=== PATIENT | female | born 1935 ===

== ENCOUNTER 2017-10-23 16:43 | Inpatient (IN) | payer MEDICARE, MEDICAID ==
[2017-10-23 16:43] VITALS: BMI 30.2
[2017-10-23] MEDS ORDERED: Metoprolol 1 mg/ml Inj IVP STA (17:27)
[2017-10-23 17:42] LABS: BASO # 0.01 K/mm3 (0.0-2.0); BASO % 0.2 % (0.0-3.0); EOS # 0.1 (0.0-0.7); EOS % 1.6 % (1.5-5.0); GRAN # 3.64 (1.4-6.5); GRAN % 57.8 % (50.0-68.0); HEMOGLOBIN 14.8 g/dL (12.0-16.0); LYMPH # 2.2 (1.2-3.4); LYMPH % 35.5 % (22.0-35.0); MEAN CELL VOLUME 88.8 fl (80.0-105.0); MEAN CORPUSCULAR HEMOGLOBIN 30.1 pg (25.0-35.0); MEAN CORPUSCULAR HGB CONC 33.9 g/dl (31.0-37.0); MEAN PLATELET VOLUME 10.6 fl (7.0-11.0); MONO # 0.3 (0.1-0.6); MONO % 4.9 % (1.0-6.0); RBC 4.91 10^6/uL (3.5-6.1); RED CELL DISTRIBUTION WIDTH 13.7 % (11.5-14.5); WHITE BLOOD COUNT 6.3 10^3/ul (4.5-11.0)
[2017-10-23 18:02] LABS: ALB/GLOB RATIO 1.3 (1.1-1.8); ALBUMIN 4.5 g/dL (3.0-4.8); ALT/SGPT 29 U/L (7-56); AST/SGOT 33 U/L (14-36); BLOOD UREA NITROGEN 21 mg/dL (7-21); CALCIUM 9.9 mg/dL (8.4-10.5); GFR AFRICAN-AMERICAN > 60; GFR NON-AFRICAN AMERICAN > 60; MAGNESIUM 1.9 mg/dL (1.7-2.2)
[2017-10-23 18:14] LABS: TROPONIN I < 0.01 ng/mL
[2017-10-23 18:15] LABS: URINE BILIRUBIN NEGATIVE (NEGATIVE); URINE BLOOD NEGATIVE (NEGATIVE); URINE GLUCOSE (UA) NEGATIVE (NEGATIVE); URINE LEUKOCYTE ESTERASE NEGATIVE Leu/uL (NEGATIVE); URINE NITRATE NEGATIVE (NEGATIVE); URINE PROTEIN NEGATIVE mg/dL (<30 mg/dL); URINE UROBILINOGEN 0.2 E.U./dL (<1 E.U./dL)
[2017-10-23 18:20] LABS: URINE APPEARANCE CLEAR (CLEAR); URINE COLOR YELLOW (YELLOW)
[2017-10-23 18:20] LABS: FREE T4 0.99 ng/dL (0.78-2.19)
[2017-10-23 18:33] LABS: T3 1.21 ng/mL (0.97-1.69)
[2017-10-23] MEDS ORDERED: Nitroglycerin 2% Ointment Foilpak UD TOP PRN (18:47)
--- NOTE | 2017-10-23 18:53 | RAD ---
HISTORY: Chest pain. Portable study 17:32. COMPARISON: 05/01/2016. FINDINGS: LUNGS: No active pulmonary disease. PLEURA: No significant pleural effusion identified, no pneumothorax apparent. CARDIOVASCULAR: Normal. OSSEOUS STRUCTURES: No significant abnormalities. VISUALIZED UPPER ABDOMEN: Normal. OTHER FINDINGS: None. IMPRESSION: No active disease. No significant interval change compared to the prior examination(s).
--- NOTE | 2017-10-23 19:03 | ED PDOC ---
Arrival/HPI - General Chief Complaint: Chest Pain Time Seen by Provider: 10/23/17 17:00 Historian: Patient - History of Present Illness Narrative History of Present Illness (Text): 10/23/17 18:55 A 82 year old female,, whose past medical history includes hypertension, diabetes, and high cholesterol, presents to the emergency department complaining of heart racing. Patient reports today she went to the clinic and was later referred to the ER here. She notes also experiencing substernal chest pain. Patient denies any fever, cough, shortness of breath, or any other complaints. She mentions not taking any medications today. No PMD Past Medical History - Provider Review Nursing Documentation Reviewed: Yes - Past History Past History: Non-Contributing - Infectious Disease Hx of Infectious Diseases: None - Tetanus Immunization Tetanus Immunization: Unknown - Cardiac Hx Cardiac Disorders: Yes Hx Hypertension: Yes - Pulmonary Hx Respiratory Disorders: No - Neurological Hx Neurological Disorder: No - HEENT Hx HEENT Disorder: No - Renal Hx Renal Disorder: No - Endocrine/Metabolic Hx Endocrine Disorders: Yes Hx Diabetes Mellitus Type 2: Yes - Hematological/Oncological Hx Blood Disorders: No - Integumentary Hx Dermatological Disorder: No - Musculoskeletal/Rheumatological Hx Musculoskeletal Disorders: No Hx Rheumatoid Arthritis: Yes - Gastrointestinal Hx Gastrointestinal Disorders: No Hx Gastrointestinal Ulcer: Yes - Genitourinary/Gynecological Hx Genitourinary Disorders: No - Psychiatric Hx Psychophysiologic Disorder: No Hx Anxiety: Yes Hx Bipolar Disorder: No Hx Depression: No Hx Emotional Abuse: No Hx Hallucinations: No Hx Panic Disorder: No Hx Post Traumatic Stress Disorder: No Hx Psychosis: No Hx Physical Abuse: No Hx Schizophrenia: No Hx Sexual Abuse: No Hx Substance Use: No - Surgical History Hx Tubal Ligation: Yes - Anesthesia Hx Anesthesia: No Hx Anesthesia Reactions: No Hx Malignant Hyperthermia: No - Suicidal Assessment Feels Threatened In Home Enviroment: No Family/Social History - Physician Review Nursing Documentation Reviewed: Yes Family/Social History: No Known Family HX Smoking Status: Never Smoked Hx Alcohol Use: No Hx Substance Use: No Hx Substance Use Treatment: No Allergies/Home Meds Allergies/Adverse Reactions: Allergies No Known Allergies Allergy (Verified 11/25/16 18:11) Home Medications: Home Meds Medication Instructions Recorded Confirmed Famotidine [Pepcid] 20 mg PO DAILY 10/23/17 10/23/17 Glipizide [Glipizide ER] 10 mg PO DAILY 10/23/17 10/23/17 Losartan [Cozaar] 50 mg PO DAILY 10/23/17 10/23/17 Meloxicam [Mobic] 15 mg PO DAILY 10/23/17 10/23/17 Ramipril [Altace] 10 mg PO DAILY 10/23/17 10/23/17 SITagliptin [Januvia] 100 mg PO DAILY 10/23/17 10/23/17 Review of Systems - Physician Review All systems were reviewed & negative as marked: Yes - Review of Systems Constitutional: absent: Fevers Respiratory: absent: SOB, Cough Cardiovascular: Chest Pain (substernal) Physical Exam Vital Signs Reviewed: Yes Vital Signs Temp Pulse Resp BP Pulse Ox 10/23/17 18:03 74 18 168/105 H 98 10/23/17 17:37 109 H 162/81 H 10/23/17 16:58 98.2 F 97 H 16 99 10/23/17 16:56 98.2 F 126 H 18 146/107 H 98 Temperature: Afebrile Blood Pressure: Normal Pulse: Tachycardic Respiratory Rate: Normal Appearance: Positive for: Well-Appearing Pain Distress: None Mental Status: Positive for: Alert and Oriented X 3 Finger Stick Blood Glucose: 84 - Systems Exam Head: Present: Atraumatic, Normocephalic Pupils: Present: PERRL Extroacular Muscles: Present: EOMI Conjunctiva: Present: Normal Mouth: Present: Moist Mucous Membranes Neck: Present: Normal Range of Motion Respiratory/Chest: Present: Clear to Auscultation, Good Air Exchange. No: Respiratory Distress, Accessory Muscle Use Cardiovascular: Present: Tachycardic. No: Murmurs Abdomen: Present: Normal Bowel Sounds. No: Tenderness, Distention, Peritoneal Signs Back: Present: Normal Inspection Upper Extremity: Present: Normal Inspection. No: Cyanosis, Edema Lower Extremity: Present: Normal Inspection. No: Edema Neurological: Present: GCS=15, CN II-XII Intact, Speech Normal Skin: Present: Warm, Dry, Normal Color. No: Rashes Psychiatric: Present: Alert, Oriented x 3, Normal Insight, Normal Concentration Medical Decision Making ED Course and Treatment: 10/23/17 19:00 Impression: 82 year old female with substernal chest pain and felt as though heart was racing today. Physical exam is unremarkable. Plan: -- EKG -- Chest X-ray -- Labs -- Urinalysis -- Tylenol -- Aspirin -- Pepcid -- Ecotrin -- Cozaar -- Lopressor -- Nitroglycerin -- Zofran -- Humulin -- Rehab Facilites -- Reassess and disposition Prior Visits: Notes and results from previous visits were reviewed. Patient was last seen in the emergency department on Progress Notes: 1st EKG from earlier: EKG: Ordered, reviewed, and independently interpreted the EKG. Rate : 116 BPM Rhythm : Sinus tachycardia Interpretation : With PAC Comparison : No previous EKG for comparison. Patient was given Lopressor 5 mg IV and repeat EKG which showed Sinus rhythm at 82 BPM normal access with 2nd degree AV block (elizabeth baez). Patient states she is feeling better. Blood pressure currently at 150/80. 10/23/2017 18:51 Chest X-ray IMPRESSION: No active disease. No significant interval changed compared to the prior examination(s). Dictator: Jer Justin MD - Lab Interpretations Lab Results: 10/23/17 17:25 10/23/17 17:25 Lab Results 10/23/17 18:02: POC Glucose (mg/dL) 84 10/23/17 17:56: Urine Color Yellow, Urine Appearance Clear, Urine pH 6.0, Ur Specific [place] 1.010, Urine Protein Negative, Urine Glucose (UA) Negative, Urine Ketones Negative, Urine Blood Negative, Urine Nitrate Negative, Urine Bilirubin Negative, Urine Urobilinogen 0.2, Ur Leukocyte Esterase Negative 10/23/17 17:25: Free T4 0.99, Total T3 1.21, TSH 3rd Generation 0.82 10/23/17 17:25: Sodium 145, Potassium 3.9, Chloride 108 H, Carbon Dioxide 25, Anion Gap 16, BUN 21, Creatinine 0.8, Est GFR ( Amer) > 60, Est GFR (Non- Af Amer) > 60, Random Glucose 132 H, Calcium 9.9, Magnesium 1.9, Total Bilirubin 0.5, AST 33, ALT 29, Alkaline Phosphatase 63, Lactate Dehydrogenase 509, Total Creatine Kinase 91, Troponin I < 0.01, Total Protein 8.1, Albumin 4.5 , Globulin 3.5, Albumin/Globulin Ratio 1.3 10/23/17 17:25: WBC 6.3, RBC 4.91, Hgb 14.8, Hct 43.6, MCV 88.8, MCH 30.1, MCHC 33.9, RDW 13.7, Plt Count 194, MPV 10.6, Gran % 57.8, Lymph % (Auto) 35.5 H, [place] % (Auto) 4.9, Eos % (Auto) 1.6, Baso % (Auto) 0.2, Gran # 3.64, Lymph # 2.2 , [place] # 0.3, Eos # 0.1, Baso # 0.01 - RAD Interpretation Radiology Orders: 10/23/17 17:26 CHEST PORTABLE [RAD] Stat - Medication Orders Current Medication Orders: Acetaminophen (Tylenol 325mg Tab) 650 mg PO Q6H PRN PRN Reason: Fever >100.4 F Aspirin (Ecotrin) 81 mg PO DAILY [facility] Famotidine (Pepcid) 20 mg PO HS [facility] Insulin Human Regular (Humulin R Low) 0 units SC ACHS [facility] PRN Reason: Protocol Losartan Potassium (Cozaar) 50 mg PO STAT [facility] Nitroglycerin (Nitro-Bid 2% Oint) 1 ea TOP Q4H PRN PRN Reason: accelerated hypertension Ondansetron HCl (Zofran Inj) 4 mg IVP Q6H PRN PRN Reason: Nausea/Vomiting Discontinued Medications Aspirin (Aspirin) 325 mg PO STAT [facility] Stop: 10/23/17 18:48 Metoprolol Tartrate (Lopressor) 5 mg IVP STAT STA Stop: 10/23/17 17:28 Last Admin: 10/23/17 17:37 Dose: 5 mg IVP Administration Document 10/23/17 17:37 MS (Rec: 10/23/17 17:38 [facility] [place] [id number] Charges for Administration # of IVP Administrations 1 DEC Pulse and Blood Pressure Document 10/23/17 17:37 MS (Rec: 10/23/17 17:38 [facility] [id number] Pulse Pulse Rate (60-90) 109 Blood Pressure Blood Pressure (100/60-150/90) 162/81 - Scribe Statement The provider has reviewed the documentation as recorded by the Scribe Marcela Myrick Provider Scribe Attestation: All medical record entries made by the Scribe were at my direction and personally dictated by me. I have reviewed the chart and agree that the record accurately reflects my personal performance of the history, physical exam, medical decision making, and the department course for this patient. I have also personally directed, reviewed, and agree with the discharge instructions and disposition. Disposition/Present on Arrival - Present on Arrival Any Indicators Present on Arrival: No History of DVT/PE: No History of Uncontrolled Diabetes: No Urinary Catheter: No History of Decub. Ulcer: Yes History Surgical Site Infection Following: None - Disposition Have Diagnosis and Disposition been Completed?: Yes Diagnosis: Chest pain, Second degree heart block, Palpitations Disposition: HOSPITALIZED Disposition Time: 18:15 Condition: GUARDED Discharge Instructions (ExitCare): Chest Pain (ED) Referrals: PCP,NO [Primary Care Provider] - Follow up with primary Forms: [employer] (Beninese)
[2017-10-23] MEDS: Insulin Reg-LOW-Coverage SC SCH (22:00)
--- NOTE | 2017-10-24 03:10 | HP ---
HISTORY OF PRESENT ILLNESS: This 82-year-old female was examined in the Emergency Room in the presence of her granddaughter, Rhonda Oliveira. The patient was interviewed and this case was reviewed in detail with herself, granddaughter, and Dr. Amarjit Avila, emergency room physician. The patient presented today after being at a local medical clinic where she was noted to have tachycardia with concerns of rapid atrial fibrillation versus sinus tachycardia in the [facility] ER, this was confirmed, she was given one dose of IV Lopressor because of accelerated hypertension and tachycardia, and on further evaluation, it was felt that she was having a Wenckebach cardiac arrhythmia. The patient is being admitted to the cardiac unit and will have a Cardiology consultation for further evaluation of the above. Of note, the patient did complain that she felt palpitations earlier today, which prompted her to go to the stand-alone clinic, which prompted the workup as outlined above. PAST MEDICAL HISTORY: The patient has a past medical history of longstanding non-insulin dependent diabetes mellitus, chronic hypertension, hyperlipidemia, obesity, degenerative arthritis, and peptic ulcer disease with GERD. OUTPATIENT MEDICATIONS: Included Januvia, glipizide, Altace, Pepcid, Mobic, and Cozaar. ALLERGIES: SHE DENIES ANY ALLERGIES TO MEDICATIONS. SOCIAL HISTORY: She is a current nondrinker, nonsmoker, and non IV drug misuser. PAST SURGICAL HISTORY: She denied any surgical history other than tubal ligation. FAMILY HISTORY: Noncontributory. REVIEW OF SYSTEMS: CONSTITUTIONAL REVIEW: She denied fever or chills. HEAD REVIEW: Denied seizure activity or stroke. EYES REVIEW: No change in visual acuity. EARS REVIEW: No hearing loss. THROAT REVIEW: No swallowing difficulty. NECK REVIEW: No stiffness. CARDIAC REVIEW: As per HPI. LUNGS: No cough. No hemoptysis. GASTROINTESTINAL: No nausea. No vomiting. No diarrhea. GENITOURINARY: No dysuria. SKIN: No rash. VASCULAR: No claudication. PSYCHOLOGICAL: No knowledge of depression or chronic anxiety. NEUROLOGICAL: No stroke. No seizure history. ENDOCRINOLOGICAL: Hyperlipidemia and non-insulin dependent diabetes mellitus. PHYSICAL EXAMINATION: VITAL SIGNS: On the gambling monitor, she was noted to have Wenckebach arrhythmia with a temperature of 98.2, respirations 18, pulse 82, blood pressure 162/81, and pulse ox 98% on room air. HEENT: Head; normocephalic and atraumatic. Eyes; no icterus. Ears; clear. Throat; noninjected. Poor dentition. NECK: Supple. HEART: Irregular, S1 and S2. LUNGS: Clear. ABDOMEN: Obese. EXTREMITIES: No edema. SKIN: Without rash. NEUROLOGICAL: Intact. PSYCHOLOGICAL: Alert and anxious. VASCULAR: Legs warm to touch. LABORATORY DATA: White count 6300, hemoglobin 14.8, hematocrit 43.6, and platelets 194,000. Sodium 145, K 3.9, chloride 108, bicarb 25, BUN 21, creatinine 0.8, and random blood sugar 132. Magnesium normal 1.9. Bilirubin 0.5, AST 33, ALT 29, and alk phos 63. CPK normal 91. Troponin less than 0.01. Free T4, total T3, and TSH all normal. Urinalysis unremarkable. Chest x-ray was reviewed, which showed no pneumothorax, no pleural effusion, no congestive heart failure, and no active infiltrates. EKG initially showed a sinus tachycardia with PACs, post IV Lopressor. The patient was noted to have a second-degree A-V block with blood pressure 150/80 and pulse of 82. IMPRESSION: An 82-year-old female with cardiac arrhythmia, obesity, chronic hypertension, type 2 diabetes mellitus, hyperlipidemia, degenerative arthritis, peptic ulcer disease with gastroesophageal reflux disease, and anxiety neurosis. PLAN: The plan is to admit this patient to the cardiac unit. She will be prescribed Cozaar 50 mg p.o. daily, Ecotrin 81 mg p.o. daily, regular low-dose insulin protocol a.c. meals and at bedtime, nitroglycerin 1 inch to chest wall q.4 hours if her systolic blood pressure should be greater than 160 or diastolic blood pressure should be greater than 100, Pepcid 20 mg p.o. at bedtime, Tylenol 650 p.o. q.6 hours. p.r.n. pain or temperature greater than 101 and Zofran 4 mg IV q.6 hours p.r.n. nausea and vomiting. She is ordered to have a heart-healthy soft bland diabetic diet. Consultation with Dr. Perkins from Cardiology has been requested. I have ordered a stat hemoglobin A1c and a lipid panel and the patient will remain on high-risk fall protocol and physical therapy for ambulation safety has been requested as well. Additional testing will be ordered based on the patient's clinical progress and consulting reports and all of the above was discussed in detail with the patient, nursing, emergency room physician, and granddaughter at bedside. Greater than 75 minutes was spent in the care management, outlining of orders, consultations, medications, and review of records for this patient today. All questions were answered. Lore Sims MD MTDMegan
[2017-10-24 08:22] LABS: HDL CHOLESTEROL 46 mg/dL (29-60)
[2017-10-24 08:33] LABS: LDL CHOLESTEROL 128 mg/dL (0-129)
[2017-10-24] MEDS: Insulin Reg-LOW-Coverage SC SCH ×4 (10:07→21:44)
--- NOTE | 2017-10-24 10:50 | CARD ---
APPROVED REPORT EKG Measurement Heart [id number] <Conclusion> Probably sinus tachycardia with Mobitz 1 2nd degree AVB Q in lll
--- NOTE | 2017-10-24 11:08 | CON ---
DATE: 10/24/2017 REASON FOR CONSULTATION: Paroxysmal atrial fibrillation. HISTORY OF PRESENT ILLNESS: This is an 82-year-old woman who was admitted to the hospital yesterday through the Emergency Room when she presented with palpitation, rapid heart action and paroxysmal atrial fibrillation. She was initially seen in a clinic and then sent to the Emergency Room. She was given IV Lopressor and ultimately, she converted to sinus rhythm. She has remained in sinus rhythm and is stable on Telemetry this morning. There was no chest pain, shortness of breath, current palpitations, orthopnea, PND, syncope, presyncope, lightheadedness, dizziness, vertigo, edema or claudication. No fever, chills, cough, sputum production or hemoptysis. No abdominal pain, nausea, vomiting, diarrhea, constipation or melena. PAST MEDICAL HISTORY: Notable for diabetes, hypertension, hyperlipidemia, arthritis, peptic ulcer disease, and GERD. MEDICATIONS: At the time of admission include Pepcid, glipizide, losartan, Mobic, ramipril and Januvia. ALLERGIES: THERE ARE NO MEDICATION ALLERGIES. SOCIAL HISTORY: She lives at home. She is ambulatory. She does not smoke cigarettes. She does not drink alcohol. FAMILY HISTORY: Noncontributory. REVIEW OF SYSTEMS: A 10-point review of systems, otherwise, unremarkable except as noted above. PHYSICAL EXAMINATION: GENERAL: She is a well-developed woman, lying in bed on Telemetry, in no acute distress. VITAL SIGNS: Notable for sinus rhythm at 64 beats per minute. She is afebrile. Blood pressure is 110/51, respirations are 20, and O2 saturation 96% to 98% on room air. HEENT: Reveals no neck vein distention, thyromegaly, or carotid bruits. Mucous membranes are moist. Conjunctivae are pink. NECK: Supple. CHEST: Lung [place] clear. CARDIOVASCULAR: Examination of heart reveals regular rhythm with normal first and second heart sounds. PMI is not displaced. ABDOMEN: Soft. Bowel sounds are present. No mass, organomegaly, tenderness, rebound or guarding. No CVA tenderness. No palpable abdominal aortic aneurysm. EXTREMITIES: Revealed no cyanosis, clubbing, or edema. NEUROLOGIC: Awake, alert, and oriented. PSYCHIATRIC: Normal as to mood and affect. SKIN: Warm and dry. No rash or cellulitis. LABORATORY AND IMAGING STUDIES: An EKG yesterday showed atrial fibrillation with rapid ventricular response at 116 beats per minute, atrial fibrillation was new as compared to a prior EKG. A chest x-ray was a portable study, it revealed no active disease. CBC is unremarkable. Electrolytes are unremarkable except for chloride of 108, blood sugar in the 84 to 215 range. LFTs are unremarkable. CK is 91 and troponin is less than 0.01. Total cholesterol is 212, triglycerides are 126, LDL is 128, and HDL is 46. Thyroid function test is unremarkable. IMPRESSION AND PLAN: Gaby Oliveira is an 82-year-old woman with diabetes, hypertension and hyperlipidemia who was admitted with palpitations and found to have atrial fibrillation with moderately increased ventricular rate which reverted to sinus rhythm after treatment in the Emergency Room. She has remained in sinus rhythm while on Telemetry. At this time, she is on Telemetry. I will check her troponin and electrocardiogram this morning. I will start metoprolol 25 mg b.i.d. She got aspirin, she is on losartan and Pepcid. She is getting nitroglycerin paste, which can be discontinued. I will order an echocardiogram. She can be out of bed. She should be consider for nuclear stress testing. This can be on an outpatient basis. We are monitoring blood sugars. I will follow along with you. I will make additional recommendations based on a clinical course. Supa Perkins MD MTDD
--- NOTE | 2017-10-24 11:18 | CARD ---
APPROVED REPORT EKG Measurement Heart [id number] <Conclusion> Normal sinus rhythm Small q in lll, F NSSTW changes Mildly prolonged QTc
--- NOTE | 2017-10-25 02:57 | PN ---
DATE: 10/24/2017 SUBJECTIVE: This 82-year-old female was examined on the cardiac chanel. This case was reviewed in detail with herself, her nurse, Susan and Dr. Supa Perkins from Cardiology, and her grandson Dillan Beasley at bedside. The patient was admitted with palpitations, tachycardia, cardiac arrhythmia, and accelerated hypertension. At present, she is lying in bed, chest pain free, remaining highly anxious and cooperating with the cardiac workup which includes a 2-D echocardiogram and adjustment of medication. The grandson expressed to me that the patient does become confused and noncompliant with medication as an outpatient, and he will be attempting to remedy this issue once released to home. 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 VITAL SIGNS: Show temperature 97.1, respirations 20, pulse 67, and blood pressure 147/69 with a pulse ox of 96%. HEAD: Normocephalic, atraumatic. EYES: No icterus. EARS: Clear. THROAT: Noninjected. NECK: Supple. HEART: Regular S1, S2. LUNGS: Clear. ABDOMEN: Soft. EXTREMITIES: No edema. SKIN: Without rash. NEUROLOGIC: Intact. PSYCHOLOGIC: Anxiety. VASCULAR: Legs warm to touch. LABORATORY DATA: White count 6300, hemoglobin 14.8, hematocrit 43.6, platelets of 194,000. Random blood sugar 215. Cholesterol 212, LDL 128, HDL 46, triglycerides 126. All thyroid function testing was normal. Troponin this morning was less than 0.01. Sodium 145, potassium 3.9, chloride 108, bicarb 25, BUN 21, creatinine 0.8. All liver function testing normal including bilirubin 0.5, AST 33, ALT 29, alk phos 63. IMPRESSION: An 82-year-old female with obesity, hypertension, cardiac arrhythmia, hyperlipidemia, anxiety neurosis, peptic ulcer disease with gastroesophageal reflux disease, uncontrolled diabetes mellitus, and noncompliance with medication as outpatient. 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 She continues on a heart-healthy, soft, bland diabetic diet with orders for Pepcid 20 mg p.o. at bedtime, nitroglycerin 1 inch chest wall q.4 hours p.r.n. accelerated hypertension if systolic blood pressure should be greater than 160 or diastolic blood pressure should be greater than 100, Lopressor 25 mg p.o. b.i.d., Lipitor 20 mg p.o. at dinner time, regular low-dose insulin protocol before meals and at bedtime, Ecotrin 81 mg p.o. daily, Cozaar 50 mg p.o. daily. She is ordered to have a hemoglobin A1c, 2-D echocardiogram, and additional testing will be entertained based on results of echocardiography and response to medication as outlined. All the above was discussed in detail with the patient, Nursing, Cardiology, and family. Greater than 35 minutes was spent in the care management, review of x-rays, labs, and medication, and orders for this patient today. All questions were answered. Lore Sims MD MTDD
[2017-10-25 05:43] VITALS: O2SAT 98
--- NOTE | 2017-10-25 08:03 | CP.PCM.PN ---
Subjective - Date & Time of Evaluation Date of Evaluation: 10/25/17 Time of Evaluation: 07:00 - Subjective Subjective: Stable on 2R. No CP or SOB. V/S noted. RSR/Sinus miley.. No PAF PE: Lungs: clear Cor.: S1S2 Abd.: soft Ext.: no edema Neuro.: alert Trops neg x2 ECG 10/24/17: RSR, Small q 3,F, Mildly prolonged QTc Echo: Will review. Prelim: NL LV Objective - Vital Signs/Intake and Output Vital Signs (last 24 hours): Temp Pulse Resp BP Pulse Ox 98.1 F 60 19 117/58 L 98 10/25/17 05:42 10/25/17 05:42 10/25/17 05:42 10/25/17 05:42 10/25/17 05:42 Intake and Output: 10/25/17 10/25/17 06:59 18:59 Intake Total 200 Output Total 0 Balance 200 - Medications Medications: Current Medications Acetaminophen (Tylenol 325mg Tab) 650 mg PO Q6H PRN PRN Reason: Fever >100.4 F Aspirin (Ecotrin) 81 mg PO DAILY [facility] Last Admin: 10/24/17 10:11 Dose: 81 mg Atorvastatin Calcium (Lipitor) 20 mg PO DIN [facility] Last Admin: 10/24/17 17:51 Dose: 20 mg Famotidine (Pepcid) 20 mg PO HS [facility] Last Admin: 10/24/17 21:04 Dose: 20 mg Insulin Human Regular (Humulin R Low) 0 units SC ACHS [facility] PRN Reason: Protocol Last Admin: 10/24/17 21:44 Dose: Not Given Losartan Potassium (Cozaar) 50 mg PO STAT [facility] Last Admin: 10/24/17 21:04 Dose: 50 mg Losartan Potassium (Cozaar) 50 mg PO DAILY [facility] Last Admin: 10/24/17 10:15 Dose: 50 mg Metoprolol Tartrate (Lopressor) 25 mg PO BID [facility] Last Admin: 10/24/17 17:51 Dose: Not Given Nitroglycerin (Nitro-Bid 2% Oint) 1 ea TOP Q4H PRN PRN Reason: accelerated hypertension Ondansetron HCl (Zofran Inj) 4 mg IVP Q6H PRN PRN Reason: Nausea/Vomiting Assessment and Plan - Assessment and Plan (Free Text) Assessment: Palpitations/? PAF HBP Diabetes HLD DJD GERD PUD Plan: Will read echo. OOB Continue metoprolol for now. Out-pt nuclear stress test.
[2017-10-25] MEDS: Insulin Reg-LOW-Coverage SC SCH ×2 (08:10→11:42)
--- NOTE | 2017-10-25 09:07 | CARD ---
APPROVED REPORT EXAM: Two-dimensional and M-mode echocardiogram with Doppler and color Doppler. Other Information Quality : PoorRhythm : INDICATION PAF, HBP. 2D DIMENSIONS IVSd0.9 (0.7-1.1cm)LVDd3.6 (3.9-5.9cm) PWd1.1 (0.7-1.1cm)LVDs2.5 (2.5-4.0cm) FS (%) 30.5 %LVEF (%)59.0 (>50%) M-Mode DIMENSIONS Left Atrium (MM)3.00 (2.5-4.0cm)Aortic Root2.60 (2.2-3.7cm) Aortic Cusp Exc.1.70 (1.5-2.0cm) Aortic Valve AoV Peak Cqglnzcy168.0cm/s Mitral Valve MV E Iicjdthd08.9cm/sMV A Mtgnnjbg88.1cm/sE/A ratio1.1 TDI Lateral E' Peak V11.30cm/sMedial E' Peak V7.90cm/sE/Lateral E'7.2 E/Medial E'10.4 Tricuspid Valve TR Peak Wlxdvtdy956yg/sRAP GGOXHDGG99stEuDK Peak Gr.27mmHg [id number] LEFT VENTRICLE The left ventricle is normal size. There is normal left ventricular wall thickness. The left ventricular function is normal. The left ventricular ejection fraction is within the normal range. There is normal LV segmental wall motion. RIGHT VENTRICLE The right ventricle is normal size. ATRIA The left atrium size is normal. The right atrium size is normal. The interatrial septum is intact with no evidence for an atrial septal defect. AORTIC VALVE The aortic valve is not well visualized. MITRAL VALVE The mitral valve is normal in structure. Mitral regurgitation is mild. TRICUSPID VALVE The tricuspid valve is normal in structure. There is trace tricuspid regurgitation. PULMONIC VALVE The pulmonic valve is not well visualized. GREAT VESSELS The aortic root is normal in size. PERICARDIAL EFFUSION There is no pericardial effusion. <Conclusion> Very Limited Study. The left ventricle is normal size. There is normal left ventricular wall thickness. The left ventricular function is normal. Mitral regurgitation is mild. There is trace tricuspid regurgitation.
[2017-10-25 13:42] VITALS: BP 147/70; PULSE 60; RESP 18; TEMP 97.9
--- NOTE | 2017-10-26 13:39 | DS ---
FINAL DIAGNOSES: Accelerated hypertension, improved. Palpitations, resolved. Chronic type 2 diabetes mellitus. Anxiety neurosis. Peptic ulcer disease with gastroesophageal reflux disease. DISPOSITION: Home. Family to bring the patient to primary care physician within 48 hours with instructions that she needs outpatient stress testing within the next few days, and for PMD to further adjust medication of one week supply given to family including Cozaar 50 mg p.o. daily, Pepcid 20 mg p.o. at bedtime, Glucotrol ER 10 mg p.o. daily, metformin 500 mg p.o. daily, Lipitor 20 mg p.o. at bedtime and Lopressor 25 mg p.o. b.i.d. RESIDENT DOCTOR: Dr. Supa Perkins from Cardiology. SUMMARY: This 82-year-old female was admitted through the [facility] ER after presenting with palpitations, tachycardia and undergoing diagnostic workup including chest x-ray, EKGs, echocardiography; all of which showed normal sinus rhythm, and a 2D echocardiogram that was reviewed by Dr. Perkins and discussed with him, that showed normal left ventricular wall motion thickness, size and function with mild mitral regurgitation and trace tricuspid regurgitation. The patient was independent in ambulation at the time of discharge, was in a sinus rhythm with a temperature of 97.9, respirations 18, pulse 60 and blood pressure of 147/70 with a pulse ox of 98% on room air. LABORATORY DATA: White count 6300, hemoglobin 14.8, hematocrit 43.6, platelets 194,000. Random blood sugar 169. Sodium 145, potassium 3.9, chloride 108, bicarb 25, BUN 21, creatinine 0.8. All liver function testing was normal. Thyroid testing was normal. Cholesterol was 212, triglycerides 126, LDL cholesterol 128 and HDL cholesterol 46. PLAN: The patient's granddaughter, Rhonda, was given all instructions as outlined above. The patient will need fasting lipid panel after dietary adjustment. The patient and PMD will discuss the timing of a stress test as an outpatient, and all of the above was reviewed in detail with the patient; nurse, Cathie Badillo; and granddaughter, Rhonda Oliveira at bedside. All questions were answered. Lore Sims MD [facility] # [id number] MTDD
--- NOTE | 2017-10-27 07:23 | CARD ---
APPROVED REPORT EKG Measurement Heart [id number] <Conclusion> Sinus Rhythm with 2nd degree AV block (Mobitz I) Q in lll No change except the rate is slower
== END 2017-10-25 15:54 | disposition home or self-care (01) | DRG 310 ==
LOC: ED 16:43 → ERH 18:47 → 3RSO 21:33
PROVIDERS: ADMIT Internal Medicine; ATTEND Internal Medicine
DX: I48.0 Paroxysmal atrial fibrillation (principal); E11.65 Type 2 diabetes mellitus with hyperglycemia; I10 Essential (primary) hypertension; K27.9 Peptic ulcer, site unspecified, unspecified as acute or chronic, without hemorrhage or perforation; K21.9 Gastro-esophageal reflux disease without esophagitis; F41.1 Generalized anxiety disorder; I08.1 Rheumatic disorders of both mitral and tricuspid valves; I44.1 Atrioventricular block, second degree; M19.90 Unspecified osteoarthritis, unspecified site; E78.5 Hyperlipidemia, unspecified; E66.9 Obesity, unspecified; Z68.30 Body mass index [BMI] 30.0-30.9, adult; Z91.14 Patient's other noncompliance with medication regimen; Z79.84 Long term (current) use of oral hypoglycemic drugs

== ENCOUNTER 2018-01-28 07:35 | Day surgery (SDC) | payer MEDICARE ==
[2018-01-22 06:43] VITALS: BMI 31.8
--- NOTE | 2018-01-28 06:03 | HP ---
DATE OF EXAM: <01/28/2018> REASON FOR ADMISSION: Left heart cath, possible angioplasty, abnormal stress test. BRIEF CLINICAL HISTORY: This is an 82-year-old female with a past medical history significant for hypertension, hyperlipidemia, diabetes, who is complaining of burning sensation in the chest. Patient underwent a stress test that was equivocal. The patient is scheduled for elective cardiac cath with possible angioplasty. PAST HISTORY: Significant for diabetes, hypertension, hyperlipidemia, burning sensation in chest, history of paroxysmal atrial fibrillation. Now patient is in normal sinus. PREVIOUS CARDIAC WORKUP: As follows; patient had a Lexiscan stress test dated 12/18/2017 that showed technically suboptimal study, equivocal SPECT myocardial perfusion study, reversible angio defect probably due to change in position of breast, however, CAD or ischemia cannot be excluded. Patient had an echocardiography done on 10/24/2017 that showed limited study, normal left ventricular thickness, mild mitral regurgitation and trace tricuspid regurgitation, calculated ejection fraction 59%, RV systolic pressure 37. SOCIAL HISTORY: Denies any smoking. Denies any history of alcohol abuse. ALLERGIES: NO KNOWN DRUG ALLERGIES. CURRENT MEDICATIONS: Patient has been taking simethicone, Protonix, metoprolol, Lopressor 25 p.o. b.i.d., losartan 50 mg daily, glipizide 10 mg daily, Pepcid 20 mg daily, aspirin 81 mg daily. PHYSICAL EXAMINATION: As follows: GENERAL: Height of the patient is 4 feet 8 inches, weight of the patient is 142 pounds, body mass index of 31.8 kg/m2. VITAL SIGNS: Blood pressure 170/80, heart rate 60. HEENT: PERRLA, intact. NECK: Supple. No carotid bruit. No thyromegaly. CHEST: Clear to auscultation. HEART: S1 and S2 regular. ABDOMEN: Soft. EXTREMITIES: Clubbing and cyanosis negative. BLOOD WORKUP: Pending. IMPRESSION: Unstable angina, diabetes, hypertension, hyperlipidemia, abnormal stress test, mild mitral regurgitation. RECOMMENDATIONS: We will load with aspirin, Plavix. Further recommendation after the cardiac catheterization. Risks, benefits, and alternatives were discussed with the patient. The patient agreed for cardiac catheterization. Awaiting for blood workup. We will follow up with you. Thank you Dr. Sandoval for providing us the opportunity in taking care of the patient, Gaby Oliveira. Bailey Bean MD [facility] # [id number]
[2018-01-28 08:32] LABS: BASO # 0.02 K/mm3 (0.0-2.0); BASO % 0.3 % (0.0-3.0); EOS # 0.2 (0.0-0.7); EOS % 2.5 % (1.5-5.0); GRAN # 2.25 (1.4-6.5); GRAN % 37.7 % (50.0-68.0); HEMOGLOBIN 14.4 g/dL (12.0-16.0); LYMPH # 3.1 (1.2-3.4); LYMPH % 52.3 % (22.0-35.0); MEAN CELL VOLUME 88.6 fl (80.0-105.0); MEAN CORPUSCULAR HEMOGLOBIN 30.4 pg (25.0-35.0); MEAN CORPUSCULAR HGB CONC 34.4 g/dl (31.0-37.0); MEAN PLATELET VOLUME 10.9 fl (7.0-11.0); MONO # 0.4 (0.1-0.6); MONO % 7.2 % (1.0-6.0); RBC 4.73 10^6/uL (3.5-6.1)
[2018-01-28 08:43] LABS: BLOOD UREA NITROGEN 21 mg/dL (7-21); CALCIUM 9.9 mg/dL (8.4-10.5); GFR AFRICAN-AMERICAN > 60; GFR NON-AFRICAN AMERICAN > 60; HDL CHOLESTEROL 50 mg/dL (29-60)
[2018-01-28 08:50] VITALS: RESP 18
[2018-01-28 08:50] LABS: INR 0.97 (0.93-1.08); PARTIAL THROMBOPLASTIN TIME 26.5 Seconds (25.1-36.5); PROTHROMBIN TIME 11.1 SECONDS (9.4-12.5)
[2018-01-28 08:54] LABS: LDL CHOLESTEROL 135 mg/dL (0-129)
[2018-01-28] MEDS ORDERED: Verapamil 2 ML ONE (10:12)
[2018-01-28] MEDS ORDERED: Lidocaine 2% Inj (20ml) ONE (10:12)
[2018-01-28] MEDS ORDERED: Midazolam 2 MG/2 ML VIAL ONE (10:13)
[2018-01-28] MEDS ORDERED: Nitroglycerin 50mg in D5W 50 MG/250 ML BOTTLE IV ONE (10:14)
[2018-01-28] MEDS ORDERED: Iohexol 350mgl/ml 50 ML ONE (10:14)
[2018-01-28] MEDS ORDERED: Iodixanol 320 MG/ML 200 ML BOTTLE IV ONE (10:14)
[2018-01-28] MEDS ORDERED: Bacitracin 500 Units/gm Oint Foilpak UD TOP ONE (11:19)
[2018-01-28] MEDS ORDERED: Sodium Chloride 0.9% 1,000 ML IV SCH (11:30)
--- NOTE | 2018-01-28 11:35 | CPOSTOP ---
DATE: 01/28/2018 DICTATING PHYSICIAN: Bailey Bean MD. DRAW TENDER: Andres Wahl RN. TYPE OF ANESTHESIA USED: Moderate conscious sedation, total 2 mg of Versed, 100 mcg of fentanyl. Periodically started 1 mg of Versed and 50 of fentanyl. PRE-PROCEDURE DIAGNOSES: Unstable angina, abnormal stress test. PROCEDURE PERFORMED: Left heart catheterization. FINDINGS: Nonobstructive coronary artery disease, limited only to mid LAD 55%. Preserved LV function. FINAL DIAGNOSIS: One-vessel disease, nonobstructive. POST PROCEDURE CONDITION: Stable. VASCULAR ACCESS SITE: Left radial. CLOSURE DEVICE: TR Band. RADIATION DOSE: Total 2868.3 miligray unit. FLUORO TIME: 2.0 minutes. Bailey Bean MD MTDD
[2018-01-28 11:39] VITALS: TEMP 98.6
--- NOTE | 2018-01-28 12:52 | CARD ---
APPROVED REPORT EKG Measurement Heart [id number] CT 172P27 [id number] <Conclusion> Sinus bradycardia Otherwise normal ECG
[2018-01-28] MEDS ORDERED: Bacitracin 500 Units/gm Oint Foilpak UD ONE (14:01)
[2018-01-28 14:58] VITALS: BP 132/62; PULSE 58; O2SAT 96
--- NOTE | 2018-01-28 18:40 | CARD ---
APPROVED REPORT Procedure(s) performed: Left Heart Catheterization HISTORY The patient is a 82 year-old female with a history of : most recent EF: 74%. (EF Method: RADIONUCLIDE), diabetes mellitus with oral treatment , hypertension , dyslipidemia , Abnormal stress test. INDICATION The indication(s) include : positive stress test. CASE TECHNIQUE The patient was brought electively to the Cardiac Catheterization Laboratory in a fasting state and was prepped and draped in a sterile manner. The left wrist was infiltrated with 2% Lidocaine subcutaneous anesthesia. A 6FR [employer] sheath was inserted into the left radial artery without difficulty. Coronary angiography was performed using coronary diagnostic catheters. The left coronary system was accessed and visualized with a Diagnostic ,5F JL 4 CATH DXT 100 CM catheter. The right coronary system was accessed and visualized with a Diagnostic ,5 Fr JR 3.5 catheter. The left ventricle was accessed and visualized with a 5F PIGTAIL 145 CATH DXT 110 CM catheter. Left ventricular/Aortic Valve gradient assessed on pullback. Left ventriculogram was performed in OLIVAREZ projection. Closure device was deployed with a Fr TR Band (Regular) without any complications. The patient tolerated the procedure well and there were no complications associated with the procedure. Vessel Analysis The patient's coronary anatomy is co-dominant. The left main coronary artery is a medium size vessel with diffuse calcification noted throughout this vessel and without significant stenosis. There is a 30% stenosis in the distal segment. The left main bifurcates to the left anterior descending and circumflex. The left anterior descending artery is a medium size vessel with diffuse calcification noted throughout this vessel and without significant stenosis. There is a 55% stenosis in the mid segment. The first diagonal branch is a small size vessel with diffuse calcification noted throughout this vessel and without significant stenosis. The circumflex artery is a large size vessel with diffuse calcification noted throughout this vessel and without significant stenosis. The first obtuse marginal branch is a small size vessel with diffuse calcification noted throughout this vessel and without significant stenosis. The second obtuse marginal branch is a small size vessel with diffuse calcification noted throughout this vessel and without significant stenosis. The left posterior descending artery is a medium size vessel with diffuse calcification noted throughout this vessel and without significant stenosis. The right coronary artery is a medium size vessel with diffuse calcification noted throughout this vessel and without significant stenosis. The right posterior descending artery is a small size vessel with diffuse calcification noted throughout this vessel and without significant stenosis. Left Ventricle The left ventricle is normal in size with normal contractility. There was no cardiomyopathy. The left ventricular ejection fraction is estimated to be 60-65%. The left ventricular end diastolic pressure is 15 mmHg. There was no gradient across the aortic valve upon pullback. Conclusion Non Obstructive CAD limited to Mid LAD 55% non flow limiting and very tortous vessel. Preserved LV Fx. EF-60-65%, EDP-15 mmof Hg Recommendations Aggressive Medical TherapyCardiac Risk Reduction Program CC; Drs. Sandoval/ Tato.
== END 2018-01-28 15:30 | disposition home or self-care (01) ==
LOC: CATH 07:35
PROVIDERS: ATTEND Internal Medicine Cardiovascular Disease
DX: I25.110 Atherosclerotic heart disease of native coronary artery with unstable angina pectoris (principal); I10 Essential (primary) hypertension; I48.0 Paroxysmal atrial fibrillation; E78.5 Hyperlipidemia, unspecified; E11.9 Type 2 diabetes mellitus without complications; Z79.84 Long term (current) use of oral hypoglycemic drugs; Z79.82 Long term (current) use of aspirin
CPT/HCPCS: 36415; 80048; 80061; 85025; 85610; 85730; 86850; 86900; 93005; 93458; 99152; C1769; J1644 ×2; J2250; J3010; J7030; J7040; Q9966; Q9967

== ENCOUNTER 2018-01-30 08:55 | Emergency (ER) | payer MEDICARE ==
[2018-01-30 08:55] VITALS: BMI 31.8
[2018-01-30 09:26] VITALS: TEMP 98.2
[2018-01-30] MEDS ORDERED: Atrop/Hyosc/Scopal/PB Elixir (120 ml) PO STA (09:35)
[2018-01-30] MEDS ORDERED: Alum-Mag Hydrox-Simethicone Susp (30 mL) PO STA (09:35)
[2018-01-30] MEDS ORDERED: Lidocaine 2% Viscous 100 ml PO STA (09:35)
--- NOTE | 2018-01-30 09:46 | ED PDOC ---
Arrival/HPI - General Chief Complaint: Palpitations Time Seen by Provider: 01/30/18 09:07 Historian: Patient, Family (Granddaughter) - History of Present Illness Narrative History of Present Illness (Text): 01/30/18 09:39 An 82 year old female, whose past medical history includes cardiac catheterization (01/28/18), hypertension, hyperlipedemia , diabetes, and acid reflux, presents to the emergency room complaining of epigastric abdominal pain and palpitations. The patient's granddaughter states that the patient was having these symptoms last night for which she took Aspirin and slept through the night, but notes that she woke up with the symptoms this morning. The patient notes that she frequently feels nervous. She states that when she feels the epigastric pain the palpitations begin shortly after. The patient denies fevers, chills, headache, dizziness, sore throat, cough, chest pain, shortness of breath, dyspnea on exertion, vomiting, diarrhea, neck/back pain, urinary/ bowel changes or any other complaint. PMD: Dr. Sandoval Time/Duration: Other (Last Night) Symptom Onset: Sudden Symptom Course: Unchanged Context: Home Past Medical History - Provider Review Nursing Documentation Reviewed: Yes - Past History Past History: Non-Contributing - Infectious Disease Hx of Infectious Diseases: None - Tetanus Immunization Tetanus Immunization: Unknown - Reproductive Menopause: Yes - Cardiac Hx Pacemaker: No - Pulmonary Hx Respiratory Disorders: No - Neurological Hx Paralysis: No - HEENT Hx HEENT Disorder: No - Renal Hx Renal Disorder: No - Endocrine/Metabolic Hx Diabetes Mellitus Type 2: Yes - Hematological/Oncological Hx Blood Transfusions: No - Integumentary Hx Dermatological Disorder: No - Musculoskeletal/Rheumatological Hx Musculoskeletal Disorders: No - Gastrointestinal Hx Gastrointestinal Disorders: No Hx Gastrointestinal Ulcer: Yes - Genitourinary/Gynecological Hx Genitourinary Disorders: No - Psychiatric Hx Emotional Abuse: No Hx Physical Abuse: No Hx Substance Use: No - Surgical History Hx Cardiac Catheterization: Yes (01/2018) - Anesthesia Hx Anesthesia: Yes Hx Anesthesia Reactions: No Hx Malignant Hyperthermia: No - Suicidal Assessment Feels Threatened In Home Enviroment: No Family/Social History - Physician Review Nursing Documentation Reviewed: Yes Family/Social History: No Known Family HX Smoking Status: Never Smoked Hx Alcohol Use: No Hx Substance Use: No Hx Substance Use Treatment: No Allergies/Home Meds Allergies/Adverse Reactions: Allergies No Known Allergies Allergy (Verified 11/25/16 18:11) Home Medications: Home Meds Medication Instructions Recorded Confirmed Famotidine [Pepcid] 20 mg PO DAILY 10/23/17 01/28/18 Glipizide [Glipizide ER] 10 mg PO DAILY 10/23/17 01/28/18 Losartan [Cozaar] 50 mg PO DAILY 10/23/17 01/28/18 Aspirin [Adult Low Dose Aspirin EC] 81 mg PO DAILY 12/18/17 01/28/18 Metoprolol Tartrate [Lopressor] 25 mg PO BID 12/18/17 01/28/18 Pantoprazole [Protonix EC Tab] 40 mg PO DAILY 12/18/17 01/28/18 Simethicone [Mytab Gas] 80 mg PO TID 12/18/17 01/28/18 Review of Systems - Physician Review All systems were reviewed & negative as marked: Yes - Review of Systems Constitutional: absent: Fevers, Night Sweats Respiratory: absent: SOB, Cough Cardiovascular: Palpitations. absent: Chest Pain, PATEL Gastrointestinal: Abdominal Pain (Epigastic Abdominal Pain. ). absent: Stool Changes, Diarrhea, Vomiting Genitourinary Female: absent: Urine Output Changes Musculoskeletal: absent: Back Pain, Neck Pain Neurological: absent: Headache, Dizziness Physical Exam Vital Signs Reviewed: Yes Vital Signs Temp Pulse Resp BP Pulse Ox 01/30/18 11:11 59 L 18 113/52 L 95 01/30/18 09:10 98.2 F 74 19 156/81 H 96 01/30/18 08:55 98.2 F 68 14 155/71 H 96 Temperature: Afebrile Blood Pressure: Hypertensive Pulse: Regular Respiratory Rate: Normal Appearance: Positive for: Well-Appearing, Non-Toxic, Comfortable Pain Distress: None Mental Status: Positive for: Alert and Oriented X 3 - Systems Exam Head: Present: Atraumatic, Normocephalic Pupils: Present: PERRL Extroacular Muscles: Present: EOMI Conjunctiva: Present: Normal Mouth: Present: Moist Mucous Membranes Neck: Present: Normal Range of Motion Respiratory/Chest: Present: Clear to Auscultation, Good Air Exchange. No: Respiratory Distress, Accessory Muscle Use Cardiovascular: Present: Regular Rate and Rhythm, Normal S1, S2. No: Murmurs Abdomen: Present: Tenderness (Mild epigastric tenderness). No: Distention, Peritoneal Signs Back: Present: Normal Inspection Upper Extremity: Present: Normal Inspection. No: Cyanosis, Edema Lower Extremity: Present: Normal Inspection. No: Edema Neurological: Present: GCS=15, CN II-XII Intact, Speech Normal Skin: Present: Warm, Dry, Normal Color. No: Rashes Psychiatric: Present: Alert, Oriented x 3, Normal Insight, Normal Concentration Medical Decision Making ED Course and Treatment: 01/30/18 09:47 Impression: An 82 year old female presents to the emergency room complaining of epigastric abdominal pain and palpitations. r/o Gastritis r/o Pancreatitis Plan: -- EKG -- Chest X-ray -- Labs -- Maalox, Elixi, Pepcid, Lidocaine 2%, Zofran -- Reassess and disposition Progress Notes: 01/30/18 09:47: Patient had a cardiac catheterization done on 01/28/[address] Bean which showed non-obstructive CAD limited only to mid LAD 55% and reserved LV function. EKG: Ordered, reviewed, and independently interpreted the EKG. Rate : 70 BPM Rhythm : NSR CHEST X-RAY Dictator : Carlos Enrique Carreon MD Report Date : 01/30/2018 09:59:19 IMPRESSION: No active disease. 01/30/18 11:32: On re-evaluation the patient feels better and is in no acute distress. Patient is no longer having symptoms, no abdominal tenderness. I have discussed the results and plan with the patient, who expresses understanding. Patient is in agreement with the plan to discharge. Patient is stable for discharge. Patient was instructed to follow up with PMD or return if symptoms persist/worsen or new concerning symptoms arise. - Lab Interpretations Lab Results: 01/30/18 09:54 01/30/18 09:54 Lab Results 01/30/18 09:54: Sodium 140, Potassium 4.4, Chloride 105, Carbon Dioxide 26, Anion Gap 14, BUN 19, Creatinine 0.8, Est GFR ( Amer) > 60, Est GFR (Non- Af Amer) > 60, Random Glucose 216 H, Calcium 9.3, Total Bilirubin 0.3, AST 24, ALT 23, Alkaline Phosphatase 63, Lactate Dehydrogenase 400, Total Creatine Kinase 85, Troponin I 0.03 D, Total Protein 6.8, Albumin 4.0, Globulin 2.8, Albumin/Globulin Ratio 1.4, Amylase 79, Lipase 161 01/30/18 09:54: WBC 4.7 D, RBC 4.34, Hgb 12.7, Hct 38.4, MCV 88.5, MCH 29.3, MCHC 33.1, RDW 13.0, Plt Count 201, MPV 10.4, Gran % 48.6 L, Lymph % (Auto) 41.9 H, [place] % (Auto) 7.4 H, Eos % (Auto) 1.7, Baso % (Auto) 0.4, Gran # 2.28, Lymph # (Auto) 2.0, [place] # (Auto) 0.4, Eos # (Auto) 0.1, Baso # (Auto) 0.02 I have reviewed the lab results: Yes - RAD Interpretation Radiology Orders: 01/30/18 09:35 CHEST PORTABLE [RAD] Stat - EKG Interpretation Interpreted by ED Physician: Yes Type: 12 lead EKG - Medication Orders Current Medication Orders: Discontinued Medications Al Hydrox/Mg Hydrox/Simethicone (Maalox Plus 30 Ml) 30 ml PO STAT STA Stop: 01/30/18 09:36 Last Admin: 01/30/18 09:57 Dose: 30 ml Belladonna/Phenobarbital ( Elixir) 5 ml PO STAT STA Stop: 01/30/18 09:36 Last Admin: 01/30/18 09:57 Dose: 5 ml Famotidine (Pepcid) 20 mg IVP STAT STA Stop: 01/30/18 09:35 Last Admin: 01/30/18 09:57 Dose: 20 mg IVP Administration Document 01/30/18 09:57 SRE (Rec: 01/30/18 09:57 SRE [id number]) Charges for Administration # of IVP Administrations 1 Lidocaine (Lidocaine 2% Viscous) 15 ml PO STAT STA Stop: 01/30/18 09:36 Last Admin: 01/30/18 09:59 Dose: Lidocaine HCl (Lidocaine 2% Viscous) 15 ml PO STAT STA Stop: 01/30/18 09:39 Last Admin: 01/30/18 09:57 Dose: 15 ml Ondansetron HCl (Zofran Inj) 4 mg IVP STAT STA Stop: 01/30/18 09:35 Last Admin: 01/30/18 09:59 Dose: 4 mg IVP Administration Document 01/30/18 09:59 SRE (Rec: 01/30/18 09:59 SRE [id number]) Charges for Administration # of IVP Administrations 1 - Scribe Statement The provider has reviewed the documentation as recorded by the Scribe Marycruz Pinedo Provider Scribe Attestation: All medical record entries made by the Scribe were at my direction and personally dictated by me. I have reviewed the chart and agree that the record accurately reflects my personal performance of the history, physical exam, medical decision making, and the department course for this patient. I have also personally directed, reviewed, and agree with the discharge instructions and disposition. Disposition/Present on Arrival - Present on Arrival Any Indicators Present on Arrival: No History of DVT/PE: No History of Uncontrolled Diabetes: No Urinary Catheter: No History of Decub. Ulcer: No History Surgical Site Infection Following: None - Disposition Have Diagnosis and Disposition been Completed?: Yes Diagnosis: Abdominal pain, Acid reflux, Palpitations Disposition: HOME/ ROUTINE Disposition Time: 11:31 Patient Plan: Discharge Condition: IMPROVED Discharge Instructions (ExitCare): Acid Reflux (Gastroesophageal Reflux Disease ), Adult (DC) Additional Instructions: Ms Oliveira, thank you for letting us take care of you today. Your provider was Dr. Crum. You were treated for ABdominal Pain, Reflux. The emergency medical care you received today was directed at your acute symptoms. If you were prescribed any medication, please fill it and take as directed. It may take several days for your symptoms to resolve. Return to the Emergency Department if your symptoms worsen, do not improve, or if you have any other problems. Please contact your doctor or call one of the physicians/clinics you have been referred to that are listed on the Patient Visit Information form that is included in your discharge packet. Bring any paperwork you were given at discharge with you along with any medications you are taking to your follow up visit. Our treatment cannot replace ongoing medical care by a primary care provider (PCP) outside of the emergency department. Thank you for allowing the [facility] team to be part of your care today. If you had an X-Ray or CT scan: A Radiologist will review the ED reading if any change in treatment is needed we will contact you. If you had a blood, urine, or wound culture: It will take several days for the results, if any change in treatment is needed we will contact you. If you had an STI test: It will take 48 hours for the results. Please call after 1 week if you have not heard back. Referrals: Viet Sandoval MD [Primary Care Provider] - Follow up with primary Forms: [employer] (Swiss)
[2018-01-30 10:00] LABS: BASO # 0.02 K/mm3 (0.0-2.0); BASO % 0.4 % (0.0-3.0); EOS # 0.1 (0.0-0.7); EOS % 1.7 % (1.5-5.0); GRAN # 2.28 (1.4-6.5); GRAN % 48.6 % (50.0-68.0); HEMOGLOBIN 12.7 g/dL (12.0-16.0); LYMPH % 41.9 % (22.0-35.0); MEAN CELL VOLUME 88.5 fl (80.0-105.0); MEAN CORPUSCULAR HEMOGLOBIN 29.3 pg (25.0-35.0); MEAN CORPUSCULAR HGB CONC 33.1 g/dl (31.0-37.0); MEAN PLATELET VOLUME 10.4 fl (7.0-11.0); MONO # 0.4 (0.1-0.6); MONO % 7.4 % (1.0-6.0); RBC 4.34 10^6/uL (3.5-6.1); WHITE BLOOD COUNT 4.7 10^3/ul (4.5-11.0)
--- NOTE | 2018-01-30 10:00 | RAD ---
HISTORY: abd pain COMPARISON: 10/23/2017 FINDINGS: LUNGS: No active pulmonary disease. PLEURA: No significant pleural effusion identified, no pneumothorax apparent. CARDIOVASCULAR: No interval change. OSSEOUS STRUCTURES: No significant abnormalities. VISUALIZED UPPER ABDOMEN: Normal. OTHER FINDINGS: None. IMPRESSION: No active disease.
[2018-01-30 10:21] LABS: ALB/GLOB RATIO 1.4 (1.1-1.8); ALT/SGPT 23 U/L (7-56); AMYLASE 79 U/L (35-125); AST/SGOT 24 U/L (14-36); BLOOD UREA NITROGEN 19 mg/dL (7-21); CALCIUM 9.3 mg/dL (8.4-10.5); GFR AFRICAN-AMERICAN > 60; GFR NON-AFRICAN AMERICAN > 60; LIPASE 161 U/L (23-300)
[2018-01-30 10:31] LABS: TROPONIN I 0.03 ng/mL
[2018-01-30 11:12] VITALS: BP 113/52; PULSE 59; RESP 18
[2018-01-30 11:23] VITALS: O2SAT 95
--- NOTE | 2018-01-30 19:46 | CARD ---
APPROVED REPORT EKG Measurement Heart [id number] WI 164P42 [id number] <Conclusion> Normal sinus rhythm Normal ECG
== END 2018-01-30 11:32 | disposition home or self-care (01) ==
LOC: ED 08:55
DX: K21.9 Gastro-esophageal reflux disease without esophagitis (principal); R10.13 Epigastric pain; R10.9 Unspecified abdominal pain; R00.2 Palpitations; E11.9 Type 2 diabetes mellitus without complications; I10 Essential (primary) hypertension; E78.5 Hyperlipidemia, unspecified
CPT/HCPCS: 71045; 80053; 82150; 82550; 83615; 83690; 84484; 85025; 93005; 96374; 96375; 99284; J2405

== ENCOUNTER 2019-03-03 15:12 | Emergency (ER) | payer MEDICAID, MEDICARE ==
[2019-03-03 15:12] VITALS: BMI 31.8
--- NOTE | 2019-03-03 16:18 | ED PDOC ---
Arrival/HPI - General Chief Complaint: Anxiety Historian: Patient, Family - History of Present Illness Narrative History of Present Illness (Text): 03/03/19 16:09 Pt is an 83 yo female with a PMH of DM, HTN, HLD, GERD who presented to the ED complaining of anxiety. Pt granddaughter is at bedside helping relate the history. Pt states that at 2pm she laid down to rest and the next thing she knows in she could not move for a few seconds. She states she could move all of her extremeties but she felt like she could not get out of bed. She states she was scared and that "I don't want to ". Reports palpitations. Denies nausea, vomiting, constipation diarrhea. Past Medical History - Past History Past History: Non-Contributing - Infectious Disease Hx of Infectious Diseases: None - Tetanus Immunization Tetanus Immunization: Unknown - Cardiac Hx Pacemaker: No - Pulmonary Hx Respiratory Disorders: No - Neurological Hx Paralysis: No - HEENT Hx HEENT Disorder: No - Renal Hx Renal Disorder: No - Endocrine/Metabolic Hx Diabetes Mellitus Type 2: Yes - Hematological/Oncological Hx Blood Transfusions: No - Integumentary Hx Dermatological Disorder: No - Musculoskeletal/Rheumatological Hx Musculoskeletal Disorders: No - Gastrointestinal Hx Gastrointestinal Disorders: No Hx Gastrointestinal Ulcer: Yes - Genitourinary/Gynecological Hx Genitourinary Disorders: No - Psychiatric Hx Emotional Abuse: No Hx Physical Abuse: No Hx Substance Use: No - Surgical History Hx Cardiac Catheterization: Yes (01/2018) - Anesthesia Hx Anesthesia: Yes Hx Anesthesia Reactions: No Hx Malignant Hyperthermia: No - Suicidal Assessment Feels Threatened In Home Enviroment: No Family/Social History Family/Social History: No Known Family HX Smoking Status: Never Smoked Hx Alcohol Use: No Hx Substance Use: No Hx Substance Use Treatment: No Allergies/Home Meds Allergies/Adverse Reactions: Allergies No Known Allergies Allergy (Verified 11/25/16 18:11) Home Medications: Home Meds Medication Instructions Recorded Confirmed Famotidine [Pepcid] 20 mg PO DAILY 10/23/17 01/28/18 Glipizide [Glipizide ER] 10 mg PO DAILY 10/23/17 01/28/18 Losartan [Cozaar] 50 mg PO DAILY 10/23/17 01/28/18 Aspirin [Adult Low Dose Aspirin EC] 81 mg PO DAILY 12/18/17 01/28/18 Metoprolol Tartrate [Lopressor] 25 mg PO BID 12/18/17 01/28/18 Pantoprazole [Protonix EC Tab] 40 mg PO DAILY 12/18/17 01/28/18 Simethicone [Mytab Gas] 80 mg PO TID 12/18/17 01/28/18 Medical Decision Making ED Course and Treatment: 03/03/19 19:06 CBC CMP EKG Chest X-ray TSH Free T4 Urinalysis acetaminophen level 03/03/19 19:49 spoke with pt, pt feels better now requesting to go home discharge pt Pt seen, examined, assessment and plan discussed with Dr Selwyn Mcintyre PGY1 - PA / [employer] / Resident Statement / has reviewed & agrees with the documentation as recorded. / has examined the patient and agrees with the treatment plan. Disposition/Present on Arrival - Present on Arrival Any Indicators Present on Arrival: No History of DVT/PE: No History of Uncontrolled Diabetes: No Urinary Catheter: No History of Decub. Ulcer: No History Surgical Site Infection Following: None - Disposition Have Diagnosis and Disposition been Completed?: Yes Diagnosis: Anxiety Disposition: HOME/ ROUTINE Disposition Time: 19:50 Patient Plan: Discharge Patient Problems: Current Active Problems Problem Status Onset Anxiety Acute Condition: GOOD Discharge Instructions (ExitCare): Anxiety, Adult (DC) Forms: [employer] (Iranian)
[2019-03-03 17:27] LABS: BASO # 0.02 K/mm3 (0.0-2.0); BASO % 0.5 % (0.0-3.0); EOS # 0.1 (0.0-0.7); EOS % 2.6 % (1.5-5.0); HEMOGLOBIN 12.8 g/dL (12.0-16.0); LYMPH # 2.4 (1.2-3.4); MEAN CELL VOLUME 91.5 fl (80.0-105.0); MEAN CORPUSCULAR HEMOGLOBIN 30.3 pg (25.0-35.0); MEAN CORPUSCULAR HGB CONC 33.2 g/dl (31.0-37.0); MEAN PLATELET VOLUME 10.8 fl (7.0-11.0); MONO # 0.3 (0.1-0.6); RBC 4.22 10^6/uL (3.5-6.1); RED CELL DISTRIBUTION WIDTH 13.1 % (11.5-14.5); URINE BILIRUBIN NEGATIVE (NEGATIVE); URINE BLOOD NEGATIVE (NEGATIVE); URINE GLUCOSE (UA) 100 mg/dL (NEGATIVE); URINE LEUKOCYTE ESTERASE TRACE Leu/uL (NEGATIVE); URINE PROTEIN TRACE mg/dL (<30 mg/dL); URINE UROBILINOGEN 0.2 E.U./dL (<1 E.U./dL); WHITE BLOOD COUNT 4.3 10^3/uL (4.5-11.0)
[2019-03-03 17:34] LABS: URINE APPEARANCE CLEAR (CLEAR); URINE COLOR STRAW (YELLOW)
[2019-03-03 17:37] LABS: ALB/GLOB RATIO 1.2 (1.1-1.8); ALBUMIN 4.1 g/dL (3.0-4.8); ALT/SGPT 20 U/L (7-56); AST/SGOT 28 U/L (14-36); BLOOD UREA NITROGEN 15 mg/dL (7-21); CALCIUM 9.3 mg/dL (8.4-10.5); GFR NON-AFRICAN AMERICAN > 60
[2019-03-03 17:38] LABS: ACETAMINOPHEN < 10.0 ug/ml (10.0-20.0); SALICYLATE < 1 mg/dL (2.0-20.0)
[2019-03-03 17:53] LABS: BARBITURATES, UR NEGATIVE (NEGATIVE); BENZODIAZEPINES, UR NEGATIVE (NEGATIVE); OPIATES, UR NEGATIVE (NEGATIVE); PHENCYCLIDINE, UR NEGATIVE (NEGATIVE)
[2019-03-03 18:00] LABS: FREE T4 1.25 ng/dL (0.78-2.19)
[2019-03-03 18:55] VITALS: RESP 18; O2SAT 98
--- NOTE | 2019-03-03 19:09 | RAD ---
Date of service: 03/03/2019 HISTORY: chest pain COMPARISON: 01/30/2018. FINDINGS: LUNGS: No active pulmonary disease. PLEURA: No significant pleural effusion identified, no pneumothorax apparent. CARDIOVASCULAR: No atherosclerotic calcification present Normal. OSSEOUS STRUCTURES: No significant abnormalities. VISUALIZED UPPER ABDOMEN: Normal. OTHER FINDINGS: None. IMPRESSION: No active disease. No significant interval change compared to the prior examination(s).
--- NOTE | 2019-03-03 19:32 | CARD ---
APPROVED REPORT Date of service: 03/03/2019 EKG Measurement Heart [id number] <Conclusion> Poor data quality, interpretation may be adversely affected Sinus bradycardia Otherwise normal ECG
[2019-03-04 02:19] VITALS: BP 141/84; PULSE 70
[2019-03-04 02:20] VITALS: TEMP 98.1
== END 2019-03-04 02:20 | disposition home or self-care (01) ==
LOC: ED 15:12
DX: F41.9 Anxiety disorder, unspecified (principal); I10 Essential (primary) hypertension; E11.9 Type 2 diabetes mellitus without complications; E78.5 Hyperlipidemia, unspecified; K21.9 Gastro-esophageal reflux disease without esophagitis
CPT/HCPCS: 71045; 80053; 81001; 84439; 84443; 85025; 87086; 90791; 93005; 99283; G0480